=== PATIENT | male | born 1955 | race Caucasian/White ===

== ENCOUNTER → 2016-11-14 | Outpatient (REF) | payer OTHER ==
[2016-11-16 08:07] LABS: Lyme Disease IgG Ab 18 kDa Ban Absent (.); Lyme Disease IgG Ab 23 kDa Ban Absent (.); Lyme Disease IgG Ab 28 kDa Ban Absent (.); Lyme Disease IgG Ab 30 kDa Ban Absent (.); Lyme Disease IgG Ab 39 kDa Ban Absent (.); Lyme Disease IgG Ab 41 kDa Ban Absent (.); Lyme Disease IgG Ab 45 kDa Ban Absent (.); Lyme Disease IgG Ab 58 kDa Ban Absent (.); Lyme Disease IgG Ab 66 kDa Ban Absent (.); Lyme Disease IgG Ab 93 kDa Ban Absent (.); Lyme Disease IgG West Blot Int Negative (.); Lyme Disease IgG/IgM Antibodie 1.02 ISR (0.00-0.90); Lyme Disease IgM Ab 23 kDa Ban Absent (.); Lyme Disease IgM Ab 39 kDa Ban Absent (.); Lyme Disease IgM Ab 41 kDa Ban Absent (.); Lyme Disease IgM Ab Quantitati <0.80 index (0.00-0.79); Lyme Disease IgM West Blot Int Negative (.)
== END ==
LOC: M LAB REF 12:09
PROVIDERS: ATTEND Family Medicine
DX: Z11.59 Encounter for screening for other viral diseases (principal); W57.XXXD Bitten or stung by nonvenomous insect and other nonvenomous arthropods, subsequent encounter; X58.XXXD Exposure to other specified factors, subsequent encounter; Y93.9 Activity, unspecified; Y92.9 Unspecified place or not applicable; Y99.8 Other external cause status

== ENCOUNTER 2017-06-06 06:47 | Day surgery (SDC) | payer OTHER ==
[2017-06-06] MEDS ORDERED: PROPOFOL 200 MG/20 ML VIAL As Ordered (07:12)
[2017-06-06] MEDS ORDERED: LIDOCAINE 2% MDV 20 ML VIAL As Ordered (07:12)
[2017-06-06] MEDS: NS 1,000 ML IV (07:15)
== END 2017-06-06 08:29 | disposition home or self-care (01) ==
LOC: M OPP 06:47
DX: Z12.11 Encounter for screening for malignant neoplasm of colon (principal); K64.0 First degree hemorrhoids; K57.30 Diverticulosis of large intestine without perforation or abscess without bleeding; E78.5 Hyperlipidemia, unspecified; E11.9 Type 2 diabetes mellitus without complications; R06.83 Snoring; Z79.4 Long term (current) use of insulin; Z79.899 Other long term (current) drug therapy
CPT/HCPCS: 45378

== ENCOUNTER → 2017-09-25 | Outpatient (REF) | payer OTHER ==
[2017-09-25 14:08] LABS: GAMMA GLUTAMYLTRANSPEPTIDASE 75 U/L (15-85)
== END ==
LOC: M LAB REF 13:27
DX: R74.8 Abnormal levels of other serum enzymes (principal)

== ENCOUNTER → 2018-04-23 | Outpatient (CLI) | payer OTHER ==
[~2018-04-23] MED LIST: ISOVUE-370 76% 100ML VIAL (Q9967) As Ordered ONE; LIPI10TA PO; METF500T13 PO; MULT1TAB10 PO; NAPR-885 PO
--- NOTE | 2018-04-23 08:48 | REP ---
CT NECK WITH CONTRAST: HISTORY: Swelling. CONTRAST: Isovue 370, 75 mL. A BB was placed on the right side of the neck at the C2-3 level. The naso-, niki-, and hypopharynx, larynx and subglottic trachea are normal in appearance. The salivary and thyroid glands are normal in size and density. Small lymph nodes less than 1 cm in size are present in the internal jugular chains, posterior triangles, submandibular, and submental areas. There is slight asymmetry in the subcutaneous fat overlying the inferior occipital bone greater on the right than on the left. There is no definite mass. Minimal degenerative change is present in the cervical spine. The lung apices are clear. Minimal mucosal thickening is present in the ethmoid and left maxillary sinuses. IMPRESSION: There is no neck mass or adenopathy. Electronically Signed by Ab Bonds MD 04/23/2018 08:57 A
== END ==
LOC: M RAD 07:31
PROVIDERS: ATTEND Surgery
DX: R22.1 Localized swelling, mass and lump, neck (principal)
CPT/HCPCS: 70491; Q9967

== ENCOUNTER → 2019-06-02 | Outpatient (CLI) | payer OTHER ==
[~2019-06-02] MED LIST changes: -ISOVUE-370 76% 100ML VIAL (Q9967) As Ordered ONE
--- NOTE | 2019-06-02 09:06 | REP ---
Clinical: Neck pain. Technique: AP, lateral, flexion/extension, swimmer's, bilateral oblique and open mouth views of the cervical spine. Findings: Moderate to advanced degenerative disc osteophyte complexes are appreciated primarily involving C5-6 and C6-7. Alignment and lordosis maintained. No acute fracture / compression injury or subluxation. Oblique views demonstrate patent neural foramen. Open mouth view demonstrates normal C1-C2 articulation and odontoid process. Impression: Advanced degenerative spondylosis at C5-6 and C6-7. Moderate degenerative changes noted throughout the remainder examination. No acute fracture / compression injury or subluxation. Electronically Signed by Mejia Freeman MD 06/02/2019 08:58 A
== END ==
LOC: M WUC 08:07
PROVIDERS: ATTEND Family Medicine
DX: M54.6 Pain in thoracic spine (principal); M50.323 Other cervical disc degeneration at C6-C7 level; M50.322 Other cervical disc degeneration at C5-C6 level

== ENCOUNTER → 2020-04-07 | Outpatient (REF) | LOC: M EMPSSV 09:04 | PROVIDERS: ATTEND Family Medicine | DX: Z20.828 Contact with and (suspected) exposure to other viral communicable diseases (principal) ==

== ENCOUNTER → 2020-12-22 | Outpatient (CLI) | payer OTHER, MEDICARE ==
--- NOTE | 2020-12-22 09:15 | REP ---
INDICATION: ELEVATED LFT. COMPARISON: None. TECHNIQUE: Transabdominal right upper quadrant sonography. FINDINGS: Scanning through the right upper quadrant of the abdomen demonstrates a normal sized, thin-walled gallbladder without evidence of stone. There does appear to be a 5 mm nonshadowing in mobile echogenic structure along the gallbladder wall consistent with a polyp.. Common bile duct is normal measuring 5.1 cm in greatest diameter. No focal liver lesion is seen. The liver is high echogenic and shows decreased in Son a paul suggestive of fatty infiltration. Liver size is normal. No pancreatic abnormality is observed. No right renal abnormality is seen. There is no evidence of ascites. The right kidney measures 12.9 x 6.3 x 4.6 cm. IMPRESSION: Small gallbladder polyp. Probable fatty infiltration of the liver. Otherwise negative. <Electronically signed by Milton Aguilar > 12/22/20 [id number]
== END ==
LOC: M RAD 08:35
PROVIDERS: ATTEND Family Medicine
DX: R74.01 Elevation of levels of liver transaminase levels (principal); K82.4 Cholesterolosis of gallbladder

== ENCOUNTER → 2021-03-26 | Outpatient (REF) | payer OTHER, MEDICARE | LOC: M LAB REF 16:29 | PROVIDERS: ATTEND Family Medicine | DX: R74.8 Abnormal levels of other serum enzymes (principal) ==

== ENCOUNTER → 2022-07-13 | Outpatient (CLI) | payer MEDICARE, OTHER | LOC: M RAD 09:41 | PROVIDERS: ATTEND Family Medicine | DX: Z13.6 Encounter for screening for cardiovascular disorders (principal) ==

== ENCOUNTER → 2023-12-21 | Outpatient (CLI) | payer MEDICARE, OTHER ==
[~2023-12-21] MED LIST changes: +ISOVUE-370 76% 100ML VIAL As Ordered ONE
== END ==
LOC: M RAD 08:10
PROVIDERS: ATTEND Family Medicine
DX: R22.1 Localized swelling, mass and lump, neck (principal)
CPT/HCPCS: 70491; Q9967